=== PATIENT | male | born 1970 | race Caucasian/White ===

== ENCOUNTER 2016-08-30 11:35 | Emergency (ER) | payer MEDICAID ==
[2016-08-30 12:06] VITALS: BP 145/90
--- NOTE | 2016-08-30 12:23 | EDM.PDOC ---
ED HPI HEAD INJURY - General Chief Complaint: Head Injury Stated Complaint: HEAD INJURY Time Seen by Provider: 08/30/16 12:18 Source: Reports: Patient History Limitations: Reports: No limitations - History of Present Illness INITIAL COMMENTS - FREE TEXT/NARRATIVE: 2 days ago pt rolled a scotter and he hit the rt side of his head. He was knocked out briefly and he continues to have some dizziness. He has had some mild nausea but he has not vomited. Timing/Duration: Reports: Day(s): Associated Symptoms: Reports: headache, loss of consciousness (mild nausea. ), other - Related Data Allergies/ADRs: Allergies Allergy/AdvReac Type Severity Reaction Status Date / Time Sulfa (Sulfonamide Allergy Hives Verified 08/30/16 11:54 Antibiotics) Home Meds: Home Meds Vilazodone [Viibryd] 02/11/16 [History] traZODone 02/11/16 [History] LORazepam [LORazepam] 08/30/16 [History] Past Medical History - Past Health History Medical/Surgical History: Denies Medical/Surgical History Social & Family History - Tobacco Use Smoking Status *Q: Never Smoker - Alcohol Use Days Per Week of Alcohol Use: 0 - Recreational Drug Use Recreational Drug Use: No ED ROS GENERAL - Review of Systems Review Of Systems: See Below Constitutional: Reports: no symptoms HEENT: Reports: No symptoms Respiratory: Reports: No Symptoms Cardiovascular: Reports: No symptoms Endocrine: Reports: no symptoms GI/Abdominal: Reports: No symptoms : Reports: no symptoms Musculoskeletal: Reports: no symptoms Skin: Reports: no symptoms Neurological: Reports: Dizziness, Other ( nausea. ) Psychiatric: Reports: No symptoms ED EXAM, HEAD INJURY - Physical Exam Exam: See Below Text/Narrative:: pt arrived with dizziness and yesterday he had some pain in the upper chest. He has no pain today. Exam Limited By: No limitations General Appearance: alert, anxious, mild distress Head: other ( Pt has an abrasion on his rt forehead which was a large goose egg earlier. ) Ears: normal TMs Nose: normal inspection Throat/Mouth: Normal inspection Neck: abnormal alignment Respiratory: no respiratory distress Cardiovascular: regular rate, rhythm GI/Abdominal Exam (Abbreviated): soft, non tender (Male) Exam: Deferred Rectal (Males) Exam: Deferred Extremities: no evidence of injury Neurologic: alert, oriented x 3, other (pupils equal and reactive. ) Course - Vital Signs Last Recorded V/S: Last Vital Signs Temp 36.7 C 08/30/16 12:05 Pulse 83 08/30/16 12:05 Resp 14 08/30/16 12:05 BP 145/90 H 08/30/16 12:05 Pulse Ox 98 08/30/16 12:05 - Orders/Labs/Meds Orders: Active Orders 24 hr Category Date Time Status Head wo Cont [CT] Stat Exams 08/30/16 12:10 Taken - Re-Assessments/Exams Free Text/Narrative Re-Assessment/Exam: 08/30/16 13:11 pt had good vital signs . He had a cat scan of the head that was normal. Departure - Departure Time of Disposition: 13:08 Disposition: Home, Self-Care 01 Condition: fair Clinical Impression: Dizziness, Contusion of head Referrals: PCP,None [Primary Care Provider] - Forms: ED Department Discharge Care Plan Goals: rtc if persistent symptoms, low activity, tylenol or motrin for headache. - My Orders Last 24 Hours: My Active Orders 08/30/16 12:10 Head wo Cont [CT] Stat - Assessment/Plan Last 24 Hours: My Active Orders 08/30/16 12:10 Head wo Cont [CT] Stat
--- NOTE | 2016-08-30 13:21 | CT ---
Head wo Cont INDICATION: Dizziness. Dose: Total DLP 815 FINDINGS: No acute intracranial hemorrhage, mass, or edema. Visualized portions of the paranasal sin uses and mastoid air cells are clear. Soft tissues are negative. IMPRESSION: Negative head CT.
== END 2016-08-30 13:19 | disposition home or self-care (01) ==
LOC: JP.ED 11:35
DX: R42 Dizziness and giddiness (principal); S00.93XA Contusion of unspecified part of head, initial encounter; Z88.2 Allergy status to sulfonamides; V87.8XXA Person injured in other specified noncollision transport accidents involving motor vehicle (traffic), initial encounter
CPT/HCPCS: 70450; 70450-26; 99284-25

== ENCOUNTER 2016-09-27 20:15 | Emergency (ER) | payer MEDICAID ==
[2016-09-27 20:28] VITALS: BP 140/95
[2016-09-27] MEDS ORDERED: Bupivacaine 0.5%/EPINEPHrine 1:200,000 1.8 ML Cartridge INJECT ONE (20:57)
--- NOTE | 2016-09-27 21:13 | EDM.PDOC ---
ED HPI ENT - General Chief Complaint: ENT Problem Stated Complaint: TOOTHACHE Time Seen by Provider: 09/27/16 20:50 Source: Reports: Patient History Limitations: Reports: No limitations - History of Present Illness INITIAL COMMENTS - FREE TEXT/NARRATIVE: History of present illness: [46-year-old male presenting with a toothache. It's come on over the last couple of days. He turned it into a dentist today but apparently there is a dental conference [facility] dentists around. He's had no fever with this. He saw a dentist yesterday but the dentist apparently couldn't figure out which time she was hurting but now he knows for sure which one it is. He states the dentist took x-rays but didn't see any abnormalities. No antibiotics and no pain meds were given.] Review of systems: As per history of present illness and below otherwise all systems reviewed and negative. Past medical history: As per history of present illness and as reviewed below otherwise noncontributory. Surgical history: As per history of present illness and as reviewed below otherwise noncontributory. Social history: No reported history of drug or alcohol abuse. Family history: As per history of present illness and as reviewed below otherwise noncontributory. Physical exam: HEENT: Atraumatic, normocephalic, pupils reactive, negative for conjunctival pallor or scleral icterus, mucous membranes moist, throat clear, neck supple, nontender, trachea midline. Tooth #32 is the tooth in question and this tooth is painful to percussion and the thumb is swollen at its base. Lungs: Clear to auscultation, breath sounds equal bilaterally, chest nontender. Heart: S1S2, regular Abdomen: Soft, nondistended, nontender Neuro: Awake, alert, oriented. Exam nonfocal. Diagnostics: [] Therapeutics: [I did inject the inferior alveolar nerve with 1.8 mL of Sensorcaine mixed with lidocaine.] Impression: [Toothache] Plan: [He is provided with [place] 5/325 1 by mouth every 3-4 hours when necessary #12 and Pen-Vee K 500 mg 1 by mouth 4 times a day for 10 days and is to followup with a dentist.] Definitive disposition and diagnosis as appropriate pending reevaluation and review of above. - Related Data Allergies/ADRs: Allergies Allergy/AdvReac Type Severity Reaction Status Date / Time Sulfa (Sulfonamide Allergy Hives Verified 09/27/16 20:29 Antibiotics) Home Meds: Home Meds Vilazodone [Viibryd] 02/11/16 [History] traZODone 02/11/16 [History] LORazepam [LORazepam] 08/30/16 [History] Past Medical History - Past Health History Medical/Surgical History: Denies Medical/Surgical History Social & Family History - Tobacco Use Smoking Status *Q: Never Smoker - Alcohol Use Days Per Week of Alcohol Use: 0 - Recreational Drug Use Recreational Drug Use: No ED ROS ENT - Review of Systems Review Of Systems: ROS reveals no pertinent complaints other than HPI. ED EXAM, ENT - Physical Exam Exam: See Below Course - Vital Signs Last Recorded V/S: Last Vital Signs Temp 37.3 C 09/27/16 20:33 Pulse 89 09/27/16 20:33 Resp 16 09/27/16 20:33 BP 140/95 H 09/27/16 20:33 Pulse Ox 98 09/27/16 20:33 - Orders/Labs/Meds Meds: Medications Discontinued Medications Generic Name Dose Route Start Last Admin Trade Name Markq PRN Reason Stop Dose Admin Bupivacaine HCl/Epinephrine Bitart 1.8 ml 09/27/16 20:57 09/27/16 21:02 Marcaine 0.5%/Epinephrine 1:200,000 INJECT 09/27/16 20:58 1.8 ml ONETIME ONE Administration Departure - Departure Time of Disposition: 21:11 Disposition: Home, Self-Care 01 Condition: good Clinical Impression: Toothache Forms: ED Department Discharge Additional Instructions: I hope the injection helped. Obviously you will need to followup with a dentist soon as possible. If you develop fevers especially if associated with facial swelling and cannot get into a dentist that you should return to the ER.
== END 2016-09-27 21:20 | disposition home or self-care (01) ==
LOC: JP.ED 20:15
DX: K08.89 Other specified disorders of teeth and supporting structures (principal); Z88.2 Allergy status to sulfonamides
CPT/HCPCS: 64400; 99283-25

== ENCOUNTER 2017-01-15 13:44 | Emergency (ER) | payer MEDICAID ==
[2017-01-15 13:52] VITALS: BP 149/110
--- NOTE | 2017-01-15 15:29 | EDM.PDOCBH ---
ED HPI GENERAL MEDICAL PROBLEM - General Chief Complaint: Behavioral/Psych Stated Complaint: EVAL Time Seen by Provider: 01/15/17 15:13 Source of Information: Reports: Patient, Police, RN Notes Reviewed History Limitations: Reports: No Limitations - History of Present Illness INITIAL COMMENTS - FREE TEXT/NARRATIVE: 46-year-old gentleman is brought in by law enforcement for psychiatric evaluation, he currently lives with 2 other individuals in a home he has had some life difficulty and stressors in the past he does have a safe contract with the individuals in a home he established with [facility] has a visit with his counselor on every Friday he also is establish with a mental health provider who he had just seen on Friday and made some medication adjustments he has a scheduled follow-up appointment in 5 weeks. He was brought in by law enforcement because the safe people that he lives with were concerned about suicidal ideation, he does admit to having some difficulty with his medications after the recent change on Friday and he did miss a dose he was somewhat agitated early this morning and upset and he admits to making comments that he he knows were inappropriate he denies any suicidal ideation at this time denies any plan - Related Data Allergies Allergy/AdvReac Type Severity Reaction Status Date / Time Sulfa (Sulfonamide Allergy Hives Verified 01/15/17 14:15 Antibiotics) Home Meds: Home Meds Vilazodone [Viibryd] 0.5 tab PO DAILY 02/11/16 [History] traZODone 1 tab PO BEDTIME 02/11/16 [History] LORazepam [LORazepam] 1 tab PO ASDIRECTED 08/30/16 [History] Mirtazapine [Mirtazapine] 0.5 tab PO BEDTIME 01/15/17 [History] Past Medical History - Past Health History Medical/Surgical History: Denies Medical/Surgical History Musculoskeletal History: Reports: Fracture Psychiatric History: Reports: Anxiety, Depression, PTSD - Past Surgical History Musculoskeletal Surgical History: Reports: Other (See Below) Other Musculoskeletal Surgeries/Procedures:: left arm repair Social & Family History - Tobacco Use Smoking Status *Q: Never Smoker - Alcohol Use Days Per Week of Alcohol Use: 0 - Recreational Drug Use Recreational Drug Use: No ED ROS GENERAL - Review of Systems Review Of Systems: See Below Constitutional: Reports: No Symptoms HEENT: Reports: No Symptoms Respiratory: Reports: No Symptoms Cardiovascular: Reports: No Symptoms GI/Abdominal: Reports: No Symptoms : Reports: No Symptoms Musculoskeletal: Reports: No Symptoms Skin: Reports: No Symptoms Neurological: Reports: No Symptoms Psychiatric: Reports: No Symptoms. Denies: Homicidal Ideation, Suicidal Ideation ED EXAM, BEHAVIORAL HEALTH - Physical Exam Exam: See Below Text/Narrative:: Orientated to person place and time, appropriately dressed, well groomed, memory to recent and remote events intact, good attention and concentration, speech is of adequate rate tone and volume, good fund of knowledge, language is appropriate, Mood and affect are euthymic, no pressured thoughts, denies suicidal ideation, denies homicidal ideation, no hallucinations visual or auditory, good judgment, good insight Exam Limited By: No Limitations COURSE, BEHAVIORAL HEALTH COMP - Course Vital Signs: Last Vital Signs Temp 98.1 F 01/15/17 13:57 Pulse 109 H 01/15/17 13:57 Resp 14 01/15/17 13:57 BP 149/110 H 01/15/17 13:57 Pulse Ox 93 L 01/15/17 13:57 Departure - Departure Time of Disposition: 15:29 Disposition: Home, Self-Care 01 Condition: Good Clinical Impression: Agitation - Discharge Information Forms: ED Department Discharge Additional Instructions: Please keep your follow-up appointment with your counselor on Friday, recommend calling her mental health provider for sooner follow-up on the recent medication adjustment - Assessment/Plan Plan: Assessment Acuity = acute Site and laterality = apparent suicidal threats under agitation Etiology = unclear etiology Manifestations = none Location of injury = Home Lab values = none Plan He does have follow-up appointment with his counselor on Friday he is going to contact his mental health provider and ask for follow-up sooner due to the recent medication adjustments, I will discharge this gentleman home he has a safety plan in place denies any suicidal ideation or gestures at this time Patient was in agreement with the plan all questions were answered, they were instructed to return to the emergency department or call for worsening symptoms. This note was dictated using [employer] voice recognition software please call with any questions.
== END 2017-01-15 15:45 | disposition home or self-care (01) ==
LOC: JP.ED 13:44
DX: R45.1 Restlessness and agitation (principal); F41.9 Anxiety disorder, unspecified; F32.9 Major depressive disorder, single episode, unspecified; Z88.2 Allergy status to sulfonamides; Z79.899 Other long term (current) drug therapy; Z98.890 Other specified postprocedural states
CPT/HCPCS: 99285

== ENCOUNTER 2019-11-11 19:18 | Emergency (ER) | payer MEDICAID ==
[2019-11-11 19:36] VITALS: BP 141/90; PULSE 85
[2019-11-11] MEDS ORDERED: Ketorolac 60 MG/2 ML SDV IM ONE (20:11)
[2019-11-11] MEDS ORDERED: Baclofen 10 MG Tab PO ONE (20:12)
--- NOTE | 2019-11-11 20:23 | EDM.PDOC ---
ED HPI GENERAL MEDICAL PROBLEM - General Chief Complaint: Lower Extremity Injury/Pain Stated Complaint: FALL- LEFT LEG/THIGH/HIP PAIN Time Seen by Provider: 11/11/19 19:55 Source of Information: Reports: Patient, RN, RN Notes Reviewed History Limitations: Reports: No Limitations - History of Present Illness INITIAL COMMENTS - FREE TEXT/NARRATIVE: Carlos Eduardo is a 49 yo male that was using his son's skateboard this evening and fell off around 17:10. He states that he landed on his left side. Originally he felt okay and continued to ride the skateboard. When he was walking up the stairs to go into the house, Carlos Eduardo experienced left knee pain. He is unable to pinpoint the exact area of the knee that hurts- just the knee in general. Carlos Eduardo also states that his lateral left hip is sore, left lower back, left shoulder, left jaw, and head. He took 650 mg of acetaminophen prior to coming in. movement, palpation make the pain worse. rest improves the pain. currently rates his pain 4/10 in the left knee and that is the most bothersome area. Onset: Sudden Onset Date: 11/11/19 Onset Time: 17:10 Duration: Getting Worse Location: Reports: Head, Back, Lower Extremity, Left, Generalized (left side) Quality: Reports: Ache, Sharp (with movement or activity) Severity: Moderate Improves with: Reports: Rest Worsens with: Reports: Movement Associated Symptoms: Reports: No Other Symptoms Treatments ANALYSIS EVALUATOR: Reports: Acetaminophen left knee and hip pain Pain Score (Numeric/FACES): 4 - Related Data Allergies Allergy/AdvReac Type Severity Reaction Status Date / Time citalopram [From Celexa] Allergy Cannot Verified 11/11/19 19:37 Remember hydrocodone Allergy Cannot Verified 11/11/19 19:37 Remember propranolol Allergy Hallucinati Verified 11/11/19 19:37 ons Sulfa (Sulfonamide Allergy Anaphylactic Verified 11/11/19 19:37 Antibiotics) Shock Home Meds: Home Meds Vilazodone [Viibryd] 10 mg PO DAILY 02/11/16 [History] traZODone 50 mg PO BEDTIME 02/11/16 [History] LORazepam 1 mg PO ASDIRECTED 08/30/16 [History] Mirtazapine 15 mg PO BEDTIME 01/15/17 [History] Docoosathexaenoic Acid 1,000 mg PO DAILY 11/23/18 [History] Magnesium Oxide 400 mg PO BEDTIME 11/23/18 [History] [place] 3,6,9 Combination No.7 [[place] Dha] 1,000 mg PO DAILY 11/23/18 [History] Triamcinolone Acetonide [Triamcinolone Acetonide 0.5%] 1 applic TOP BID [History] Past Medical History - Past Health History Medical/Surgical History: Denies Medical/Surgical History HEENT History: Reports: Impaired Vision Musculoskeletal History: Reports: Fracture, Other (See Below) Other Musculoskeletal History: Left arm fracture Neurological History: Reports: Concussion Psychiatric History: Reports: Anxiety, Depression, PTSD, Suicide Attempt Dermatologic History: Reports: Cellulitis - Infectious Disease History Infectious Disease History: Reports: Chicken Pox - Past Surgical History Musculoskeletal Surgical History: Reports: Other (See Below) Other Musculoskeletal Surgeries/Procedures:: left arm repair Social & Family History - Tobacco Use Smoking Status *Q: Never Smoker - Caffeine Use Caffeine Use: Reports: Coffee - Recreational Drug Use Recreational Drug Use: No Review of Systems - Review of Systems Review Of Systems: See Below Constitutional: Reports: No Symptoms Eyes: Reports: No Symptoms Ears: Reports: No Symptoms Nose: Reports: No Symptoms Mouth/Throat: Reports: No Symptoms Respiratory: Reports: No Symptoms Cardiovascular: Reports: No Symptoms GI/Abdominal: Reports: No Symptoms Genitourinary: Reports: No Symptoms Musculoskeletal: Reports: Shoulder Pain, Arm Pain, Back Pain, Joint Pain (left knee and left hip), Muscle Pain Skin: Reports: No Symptoms ED EXAM, GENERAL - Physical Exam Exam: See Below Exam Limited By: No Limitations General Appearance: Alert, WD/WN, No Apparent Distress Respiratory/Chest: No Respiratory Distress Peripheral Pulses: 2+: Dorsalis Pedis (L), Dorsalis Pedis (R) Back Exam: Normal Inspection, Full Range of Motion, Muscle Spasm Extremities: Normal Inspection, Normal Range of Motion, Other (Left knee and left hip: full ROM, tender to palpation. No abrasions, edema, erythema, or deformity noted. Left Wrist WNL- no tenderness, crepitus, or abrasions noted- Full ROM. Left shoulder full ROM, minimal tenderness to palpation. No abrasions. No contusions or abrasions noted to left occipital head. ) Neurological: Alert, Oriented Psychiatric: Normal Affect, Normal Mood Skin Exam: Warm, Dry, Intact Course - Vital Signs Last Recorded V/S: Last Vital Signs Temp 98.6 F 11/11/19 19:40 Pulse 85 11/11/19 19:40 Resp 18 11/11/19 19:40 BP 141/90 H 11/11/19 19:40 Pulse Ox 96 11/11/19 19:40 - Orders/Labs/Meds Orders: Active Orders 24 hr Category Date Time Status Knee 3V Lt [CR] Stat Exams 11/11/19 20:11 Ordered Meds: Medications Discontinued Medications Generic Name Dose Route Start Last Admin Trade Name Mike PRN Reason Stop Dose Admin Baclofen 10 mg 11/11/19 20:12 11/11/19 20:18 Lioresal PO 11/11/19 20:13 10 mg ONETIME ONE Administration Ketorolac Tromethamine 60 mg 11/11/19 20:11 11/11/19 20:17 Toradol IM 11/11/19 20:12 60 mg ONETIME ONE Administration - Radiology Interpretation Free Text/Narrative:: xrays are negative- official radiology read pending. - Re-Assessments/Exams Free Text/Narrative Re-Assessment/Exam: 11/11/19 20:49 patient is feeling alot better after IM toradol and baclofen. Departure - Departure Time of Disposition: 20:51 Disposition: Home, Self-Care 01 Condition: Good Clinical Impression: Muscle strain of left knee, Strain of left quadriceps muscle - Discharge Information *PRESCRIPTION DRUG MONITORING PROGRAM REVIEWED*: No *COPY OF PRESCRIPTION DRUG MONITORING REPORT IN PATIENT ESTRELLA: No Referrals: PCP,None [Primary Care Provider] - Forms: ED Department Discharge Care Plan Goals: Your xrays were negative for any dislocation or fracture. You have strained your muscles in your left thigh and knee. Activity as tolerated, but don't do activity that causes a sharp increase in pain. do gentle stretching to left leg. May use ibuprofen 800 mg three times a day and 650 mg of acetaminophen four times daily for next 3-4 days. Follow up with your PCP in 3-5 days if you are not better. Call or return to ED with any worsening of symptoms or other concerns. Sepsis Event Note (ED) - Evaluation Sepsis Screening Result: No Definite Risk - Focused Exam Vital Signs: Vital Signs Temp Pulse Resp BP Pulse Ox 11/11/19 19:40 98.6 F 85 18 141/90 H 96 11/11/19 19:34 98.6 F 85 18 141/90 H 96 - My Orders Last 24 Hours: My Active Orders 11/11/19 20:11 Knee 3V Lt [CR] Stat - Assessment/Plan Last 24 Hours: My Active Orders 11/11/19 20:11 Knee 3V Lt [CR] Stat Plan: discharge to home with OTC ibuprofen and acetaminophen. dx: muscle strain
--- NOTE | 2019-11-12 09:13 | CR ---
Knee 3V Lt CLINICAL HISTORY: Pain, fall FINDINGS: No acute fracture or dislocation is noted. There are no osseous lesions. There is mild patellar spurring. There is mild prominence of the intercondylar eminence. Impression: No fracture Minimal osteoarthritic change
== END 2019-11-11 21:04 | disposition home or self-care (01) ==
LOC: JP.ED 19:18
DX: S86.812A Strain of other muscle(s) and tendon(s) at lower leg level, left leg, initial encounter (principal); S76.112A Strain of left quadriceps muscle, fascia and tendon, initial encounter; F41.9 Anxiety disorder, unspecified; F32.9 Major depressive disorder, single episode, unspecified; F43.10 Post-traumatic stress disorder, unspecified; Z88.5 Allergy status to narcotic agent; Z88.2 Allergy status to sulfonamides; Z88.8 Allergy status to other drugs, medicaments and biological substances; Z79.899 Other long term (current) drug therapy; W09.8XXA Fall on or from other playground equipment, initial encounter; Y93.51 Activity, roller skating (inline) and skateboarding
CPT/HCPCS: 73562; 96372; 99283; A9270; J1885

== ENCOUNTER 2022-07-25 16:50 | Emergency (ER) | payer MEDICAID ==
[2022-07-25 18:03] LABS: ESTIMATED GFR 101 mL/min (>60); TROPONIN I HIGH SENSITIVITY 4.3 pg/mL (<=60.3)
[2022-07-25 18:24] VITALS: BP 114/72; PULSE 65
== END 2022-07-25 19:08 | disposition home or self-care (01) ==
LOC: JP.ED 16:50
DX: R07.89 Other chest pain (principal); M54.12 Radiculopathy, cervical region; Z86.16 Personal history of COVID-19; Z88.5 Allergy status to narcotic agent; Z88.8 Allergy status to other drugs, medicaments and biological substances; Z88.2 Allergy status to sulfonamides; Z87.891 Personal history of nicotine dependence
CPT/HCPCS: 36415; 71046; 71046-26; 72040; 72040-26; 80053; 84484; 85025; 85379; 86140; 93005; 99285

== ENCOUNTER 2023-05-03 20:09 | Emergency (ER) | payer MEDICAID ==
[2023-05-03 20:37] LABS: BASOPHILS ABSOLUTE AUTO 0.06 K/uL (0.00-0.10); BASOPHILS PERCENT AUTO 0.6 % (0.1-1.3); EOSINOPHILS ABSOLUTE AUTO 0.26 K/uL (0.00-0.40); EOSINOPHILS PERCENT AUTO 2.6 % (0.0-5.4); HEMATOCRIT 40.1 % (38.4-49.7); HEMOGLOBIN 14.1 g/dL (12.9-16.9); IMMATURE GRAN ABSOLUTE AUTO 0.07 K/uL (0.00-0.23); IMMATURE GRAN PERCENT AUTO 0.7 % (0.0-0.7); LYMPHOCYTES ABSOLUTE AUTO 1.88 K/uL (0.8-3.3); MEAN CORPUSCULAR HEMOGLOBIN 29.9 pg (31.6-35.5); MEAN CORPUSCULAR HGB CONC 35.2 g/dL (31.6-35.5); MEAN CORPUSCULAR VOLUME 85.1 fL (81.4-99.0); MONOCYTES ABSOLUTE AUTO 1.04 K/uL (0.20-0.90); MONOCYTES PERCENT AUTO 10.5 % (3.3-12.6); NEUTROPHILS PERCENT AUTO 66.6 % (40.0-78.1); PLATELET COUNT,PLT 278 K/uL (130-375); RED BLOOD CELL COUNT 4.71 M/uL (4.14-5.76); WHITE BLOOD CELL COUNT,WBC 9.9 K/uL (3.2-11.0)
[2023-05-03 20:58] LABS: PROTHROMBIN TIME 9.9 sec (9.2-10.6); PTT,PARTIAL THROMBOPLSTIN TIME 27.2 sec (21.8-27.3)
[2023-05-03 21:00] LABS: ANION GAP 10.9 mmol/L (5.0-14.0); BLOOD UREA NITROGEN,BUN 18 mg/dL (7-18); CALCIUM 8.9 mg/dL (8.5-10.1); CARBON DIOXIDE,CO2 25 mmol/L (21-32); CHLORIDE,CL 105 mmol/L (100-108); CREATININE 1.1 mg/dL (0.8-1.3); ESTIMATED GFR 80 mL/min (>60); GLUCOSE RANDOM 100 mg/dL (74-106); POTASSIUM,K 3.9 mmol/L (3.6-5.2); SODIUM,NA 141 mmol/L (140-148); TROPONIN I HIGH SENSITIVITY 5.4 pg/mL (<=60.3)
[2023-05-03] MEDS ORDERED: Ketorolac 30 MG/ML SDV IM ONE (21:30)
[2023-05-03 21:56] VITALS: BP 126/82; PULSE 71
== END 2023-05-03 22:00 | disposition home or self-care (01) ==
LOC: JP.ED 20:09
DX: R07.89 Other chest pain (principal); R03.0 Elevated blood-pressure reading, without diagnosis of hypertension; R09.1 Pleurisy; Z88.8 Allergy status to other drugs, medicaments and biological substances; Z88.2 Allergy status to sulfonamides; Z88.5 Allergy status to narcotic agent
CPT/HCPCS: 36415; 71045; 80048; 84145; 84484; 85025; 85379; 85610; 85730; 93005; 96372; 99285; J1885

== ENCOUNTER 2023-11-26 13:52 | Emergency (ER) | payer MEDICAID ==
[2023-11-26 14:11] VITALS: PULSE 111
[2023-11-26 14:22] VITALS: BP 139/81
[2023-11-26 15:05] LABS: BASOPHILS ABSOLUTE AUTO 0.04 K/uL (0.00-0.10); BASOPHILS PERCENT AUTO 0.3 % (0.1-1.3); EOSINOPHILS ABSOLUTE AUTO 0.01 K/uL (0.00-0.40); EOSINOPHILS PERCENT AUTO 0.1 % (0.0-5.4); HEMATOCRIT 43.1 % (38.4-49.7); HEMOGLOBIN 15.6 g/dL (12.9-16.9); IMMATURE GRAN ABSOLUTE AUTO 0.05 K/uL (0.00-0.23); IMMATURE GRAN PERCENT AUTO 0.3 % (0.0-0.7); LYMPHOCYTES ABSOLUTE AUTO 0.77 K/uL (0.8-3.3); LYMPHOCYTES PERCENT AUTO 4.8 % (11.4-47.7); MEAN CORPUSCULAR HEMOGLOBIN 30.3 pg (31.6-35.5); MEAN CORPUSCULAR HGB CONC 36.2 g/dL (31.6-35.5); MEAN CORPUSCULAR VOLUME 83.7 fL (81.4-99.0); MONOCYTES ABSOLUTE AUTO 0.79 K/uL (0.20-0.90); MONOCYTES PERCENT AUTO 4.9 % (3.3-12.6); NEUTROPHILS ABSOLUTE AUTO 14.34 K/uL (1.0-7.6); NEUTROPHILS PERCENT AUTO 89.6 % (40.0-78.1); PLATELET COUNT,PLT 245 K/uL (130-375); RED BLOOD CELL COUNT 5.15 M/uL (4.14-5.76)
[2023-11-26 15:25] LABS: ALANINE AMINOTRANSFERASE,ALT 34 U/L (12-78); ALKALINE PHOSPHATASE 73 U/L (46-116); ASPARTATE AMNIOTRANSFERASE,AST 20 U/L (15-37); BILIRUBIN TOTAL 0.6 mg/dL (0.2-1.0); BLOOD UREA NITROGEN,BUN 16 mg/dL (7-18); CALCIUM 9.1 mg/dL (8.5-10.1); CARBON DIOXIDE,CO2 25 mmol/L (21-32); CHLORIDE,CL 99 mmol/L (100-108); CREATININE 1.3 mg/dL (0.8-1.3); EST CRCL DRUG DOSING (CG) 56.89 mL/min; ESTIMATED GFR 65 mL/min (>60); GLUCOSE RANDOM 105 mg/dL (74-106); POTASSIUM,K 4.2 mmol/L (3.6-5.2); PROTEIN TOTAL,TP 7.9 g/dL (6.4-8.2); SODIUM,NA 133 mmol/L (140-148)
[2023-11-26 15:28] LABS: C-REACTIVE PROTEIN 1.7 mg/dL (<0.50); TROPONIN I HIGH SENSITIVITY 4.6 pg/mL (<=60.3)
[2023-11-26 15:36] LABS: ANION GAP 13.2 mmol/L (5.0-14.0)
[2023-11-26 16:01] LABS: LYME AB IgG Negative (Negative); LYME AB IgM Negative (Negative)
== END 2023-11-26 16:01 | disposition home or self-care (01) ==
LOC: JP.ED 13:52
DX: A93.8 Other specified arthropod-borne viral fevers (principal); Z86.16 Personal history of COVID-19; Z79.899 Other long term (current) drug therapy; Z88.2 Allergy status to sulfonamides; Z88.8 Allergy status to other drugs, medicaments and biological substances; Z88.5 Allergy status to narcotic agent
CPT/HCPCS: 36415; 80053; 83605; 84484; 85025; 86140; 86618; 87468; 87469; 87484; 87798; 93005; 93010; 99285